=== PATIENT | female | born 1975 | race Caucasian/White ===

== ENCOUNTER 2016-07-18 07:23 | Emergency (ER) | payer OTHER | END 2016-07-18 10:53 | disposition home or self-care (01) | LOC: FER 07:23 | DX: S61.211A Laceration without foreign body of left index finger without damage to nail, initial encounter (principal); F41.9 Anxiety disorder, unspecified; Z23 Encounter for immunization; W27.8XXA Contact with other nonpowered hand tool, initial encounter; Y92.009 Unspecified place in unspecified non-institutional (private) residence as the place of occurrence of the external cause | CPT/HCPCS: 90471; 90715 ==

== ENCOUNTER 2020-06-19 08:36 | Emergency (ER) | payer OTHER ==
[~2020-06-19 08:36] MED LIST: NORCO 7.5-3251 EACH PO
[2020-06-19 09:27] LABS: BASOPHIL 0 % (0-2); EOSINOPHIL 0 % (0-5); HCT 37.8 % (37.0-47.0); HGB 12.5 g/dl (12.5-16.0); LYMPHOCYTE 24.7 % (15-48); MCH 30.9 pg (25.0-31.0); MCHC 33.1 g/dL (32.0-36.0); MCV 93.3 fL (78.0-100.0); MONOCYTE 8.1 % (0-12); MPV 10.2 fL (6.0-9.5); NEUTROPHIL 66.9 % (41-80); NRBC 0; PLT 173 K/uL (150-400); RBC 4.05 M/uL (4.20-5.40); RDW 14.3 % (11.5-14.0); WBC 7.4 K/uL (4.0-10.5)
== END 2020-06-19 10:34 | disposition home or self-care (01) ==
LOC: FER 08:36
PROVIDERS: Emergency Medicine
DX: U07.1 COVID-19 (principal); R09.1 Pleurisy; J45.909 Unspecified asthma, uncomplicated; Z87.891 Personal history of nicotine dependence; Z91.018 Allergy to other foods
CPT/HCPCS: 36415; 71045; 85025; 85379